=== PATIENT | female | born 1995 | race Two or more races ===

== ENCOUNTER 2018-06-26 16:21 | Emergency (ER) | payer OTHER ==
[~2018-06-26] VITALS: Ht 162.6 cm; Wt 68.5 kg
== END 2018-06-26 17:58 | disposition home or self-care (01) ==
LOC: ER 16:21
DX: O26.893 Other specified pregnancy related conditions, third trimester (principal); R00.2 Palpitations; Z34.83 Encounter for supervision of other normal pregnancy, third trimester

== ENCOUNTER → 2018-07-03 | Emergency (ER) | payer OTHER ==
[~2018-07-03] VITALS: Ht 162.6 cm; Wt 68.5 kg
== END | disposition left against medical advice (07) ==
LOC: ER 12:14
DX: Z53.20 Procedure and treatment not carried out because of patient's decision for unspecified reasons (principal)

== ENCOUNTER 2018-08-14 06:27 | Inpatient (IN) | payer OTHER ==
[~2018-08-14] VITALS: Ht 162.6 cm; Wt 158.0 kg
[2018-08-14] MEDS ORDERED: PRENATAL 19 TA1 EACH PO (08:31)
== END 2018-08-16 16:09 | disposition home or self-care (01) | DRG 798 ==
LOC: OBS/DEL 06:27 → LDR 07:42 → OB/GYN 07:42
PROVIDERS: ADMIT Obstetrics & Gynecology
PROC: 10E0XZZ Delivery of Products of Conception, External Approach (ICD-10-PCS; principal; 2018-08-14)
PROC: 4A0HXFZ Measurement of Products of Conception, Cardiac Rhythm, External Approach (ICD-10-PCS; 2018-08-14)
PROC: 0UL70ZZ Occlusion of Bilateral Fallopian Tubes, Open Approach (ICD-10-PCS; 2018-08-15)
DX: O80 Encounter for full-term uncomplicated delivery (principal); Z37.0 Single live birth; Z3A.38 38 weeks gestation of pregnancy; Z22.330 Carrier of Group B streptococcus; Z30.2 Encounter for sterilization